=== PATIENT | male | born 1960 | race African-American/Black ===

== ENCOUNTER 2022-02-09 08:48 | Day surgery (SDC) | payer OTHER ==
[~2022-02-09] VITALS: Ht 177.8 cm; Wt 86.2 kg
[2022-02-09] MEDS ORDERED: fentaNYL citrate 0.05 MG/ML VIAL ONE (11:48)
[2022-02-09] MEDS ORDERED: MIDAZOLAM 5 MG/5 ML VIAL ONE (11:48)
== END 2022-02-09 13:20 | disposition home or self-care (01) ==
LOC: MDS 08:48 → MMU 08:48 → MDS 13:20
PROVIDERS: ATTEND Internal Medicine Gastroenterology
DX: Z12.11 Encounter for screening for malignant neoplasm of colon (principal); K63.5 Polyp of colon; Z80.0 Family history of malignant neoplasm of digestive organs; E11.9 Type 2 diabetes mellitus without complications; M19.90 Unspecified osteoarthritis, unspecified site; Z79.899 Other long term (current) drug therapy; Z20.822 Contact with and (suspected) exposure to COVID-19
CPT/HCPCS: 45385; 87426; J3010; J2250